=== PATIENT | male | born 1995 | race Hispanic/Latino ===

== ENCOUNTER → 2020-07-19 | Outpatient (REF) | payer OTHER ==
[2020-07-19 10:03] LABS: SEMEN APPEARANCE OPAQUE (OPAQUE); SEMEN VISCOSITY LIQUID (LIQUID); SEMEN VOLUME 3.5 ml (2.0-5.0); SPERM CONCENTRATION 87.2 M/ml (>=15.0); WBC CONCENTRATION <=1 M/ml (<=1 M/ml)
== END ==
LOC: M LAB REF 10:00
PROVIDERS: ATTEND Physician Assistant
DX: N46.9 Male infertility, unspecified (principal)

== ENCOUNTER 2020-12-15 21:01 | Emergency (ER) | payer OTHER ==
[~2020-12-15] VITALS: Ht 172.7 cm; Wt 100.0 kg
[2020-12-15] MEDS ORDERED: OXYC1TAB23 PO (21:10)
[2020-12-15] MEDS ORDERED: TUMS500C PO (21:11)
== END 2020-12-15 23:14 | disposition left against medical advice (07) ==
LOC: M ED 21:02
DX: Z53.21 Procedure and treatment not carried out due to patient leaving prior to being seen by health care provider (principal)

== ENCOUNTER 2022-09-17 16:42 | Emergency (ER) | payer OTHER ==
[~2022-09-17] VITALS: Ht 172.7 cm; Wt 102.5 kg
[~2022-09-17 16:42] MED LIST: OXYC1TAB23 PO; TUMS500C PO
[2022-09-17 16:53] VITALS: TEMP 98.1
[2022-09-17] MEDS ORDERED: KETOROLAC 30 MG/ML 1ML VIAL IV ONE (17:05)
[2022-09-17] MEDS ORDERED: NS 1,000 ML IV SCH (17:40)
[2022-09-17] MEDS ORDERED: propofoL 200 MG/20 ML VIAL IV.PROC PRN (17:40)
[2022-09-17] MEDS ORDERED: KETAMINE HCL 200MG/20ML VIAL IV ONE (17:40)
[2022-09-17] MEDS ORDERED: PERC5TAB12 PO (18:33)
[2022-09-17] MEDS ORDERED: PERCOCET 5MG/325MG TAB PO ONE (18:35)
[2022-09-17] MEDS ORDERED: OXYCODONE/APAP 5MG/325MG(HOME DOSE PACK) PO ONE (19:25)
[2022-09-17 19:32] VITALS: BP 129/74; O2SAT 98
== END 2022-09-17 19:30 | disposition home or self-care (01) ==
LOC: M ED 16:42
DX: S43.004A Unspecified dislocation of right shoulder joint, initial encounter (principal); S42.251A Displaced fracture of greater tuberosity of right humerus, initial encounter for closed fracture; V00.138A Other skateboard accident, initial encounter; Y92.410 Unspecified street and highway as the place of occurrence of the external cause
CPT/HCPCS: 72125; 73030; 73080; 93041; 94760; 96361; 96374; 99156; 99285; J1885

== ENCOUNTER 2023-02-14 09:55 | Day surgery (SDC) | payer OTHER ==
[~2023-02-14] VITALS: Ht 172.7 cm; Wt 107.0 kg
[~2023-02-14 09:55] MED LIST changes: +LIDOCAINE 2% 100MG/5ML SDV (FOR ANES.) As Ordered ONE; +MIDAZOLAM INJ 2MG/2ML VIAL As Ordered ONE; +OMEG100011 PO; +ONDANSETRON 4MG 2ML VIAL As Ordered ONE; +PERC5TAB12 PO; +ROCURONIUM BROMIDE 50MG/5ML VIAL As Ordered ONE; +SUGAMMADEX SODIUM 500 MG/5 ML VIAL (BRIDION) As Ordered ONE; +THERTAB52 PO; +VITA100093 PO; +fentaNYL 100 MCG/2 ML INJECTION As Ordered ONE; +propofoL 200 MG/20 ML VIAL As Ordered ONE
[2023-02-14] MEDS ORDERED: EPINEPHrine INJ 1 MG/ML 1ML AMP As Ordered ONE (10:10)
[2023-02-14] MEDS ORDERED: LR 1,000 ML IV SCH (11:00)
[2023-02-14] MEDS ORDERED: TRANEXAMIC ACID INJection 1,000 MG in NS 100 ML IV ONE (11:05)
[2023-02-14] MEDS ORDERED: ceFAZolin SOD 2 GM in IV 1 EA IV ONE (11:05)
[2023-02-14] MEDS ORDERED: EPINEPHrine INJ 1 MG/ML 1ML AMP PN ONE (12:40)
[2023-02-14] MEDS ORDERED: dexAMETHasone 10MG/1ML VIAL PRES.FREE PN ONE (12:40)
[2023-02-14] MEDS ORDERED: ROPIvacaine 0.5% 30ML VIAL PN ONE (12:40)
[2023-02-14] MEDS ORDERED: LIDOCAINE 1% SDV 5ML VIAL PN ONE (12:40)
[2023-02-14] MEDS: fentaNYL 100 MCG/2 ML INJECTION IV PRN ×2 (12:59→13:04)
[2023-02-14] MEDS: MIDAZOLAM INJ 2MG/2ML VIAL IV PRN ×2 (12:59→13:04)
[2023-02-14] MEDS ORDERED: HYDROmorphone HCL 2MG/ML 1ML VIAL As Ordered ONE ×2 (13:30→15:43)
[2023-02-14] MEDS ORDERED: LABETALOL 100MG/20ML VIAL As Ordered ONE (13:39)
[2023-02-14] MEDS ORDERED: ACETAMINOPHEN 1000MG 100ML IV BAG As Ordered ONE (13:49)
[2023-02-14] MEDS ORDERED: TRANEXAMIC ACID 100 MG/ML 10ML VIAL As Ordered ONE (13:53)
[2023-02-14] MEDS ORDERED: METOPROLOL 5 MG/5 ML VIAL As Ordered ONE (16:01)
[2023-02-14] MEDS ORDERED: ROCURONIUM BROMIDE 50MG/5ML VIAL As Ordered ONE (16:47)
[2023-02-14] MEDS ORDERED: ceFAZolin 2 GM/D5W 50 ML IV BAG As Ordered ONE (17:23)
[2023-02-14] MEDS ORDERED: oxyCODONE 5MG TAB PO PRN (18:35)
[2023-02-14] MEDS ORDERED: MORPHINE 2 MG/ML 1ML VIAL IV PRN (18:35)
[2023-02-14] MEDS ORDERED: fentaNYL 100 MCG/2 ML INJECTION IV PRN (18:35)
[2023-02-14] MEDS ORDERED: ONDANSETRON 4MG 2ML VIAL IV PRN (18:35)
[2023-02-14 20:00] VITALS: BP 126/72; TEMP 98.1; O2SAT 100
== END 2023-02-14 20:20 | disposition home or self-care (01) ==
LOC: M SDC 09:55
PROVIDERS: ATTEND Orthopaedic Surgery
DX: S42.251A Displaced fracture of greater tuberosity of right humerus, initial encounter for closed fracture (principal); S43.431A Superior glenoid labrum lesion of right shoulder, initial encounter; M75.41 Impingement syndrome of right shoulder; M94.211 Chondromalacia, right shoulder; X58.XXXA Exposure to other specified factors, initial encounter; Y93.51 Activity, roller skating (inline) and skateboarding; Y92.9 Unspecified place or not applicable
CPT/HCPCS: 23107; 23412; 29807; 73200; 76000; C1713; C9290; J0131; J0171; J0665; J0690; J1100; J1170; J1920; J2250; J2405; J2795; J3010

== ENCOUNTER → 2023-04-09 | Outpatient (REF) | payer OTHER ==
[~2023-04-09] MED LIST changes: -LIDOCAINE 2% 100MG/5ML SDV (FOR ANES.) As Ordered ONE; -MIDAZOLAM INJ 2MG/2ML VIAL As Ordered ONE; -ONDANSETRON 4MG 2ML VIAL As Ordered ONE; -ROCURONIUM BROMIDE 50MG/5ML VIAL As Ordered ONE; -SUGAMMADEX SODIUM 500 MG/5 ML VIAL (BRIDION) As Ordered ONE; -fentaNYL 100 MCG/2 ML INJECTION As Ordered ONE; -propofoL 200 MG/20 ML VIAL As Ordered ONE
[2023-04-09 10:07] LABS: SEMEN APPEARANCE OPAQUE (OPAQUE); SEMEN VISCOSITY LIQUID (LIQUID); SEMEN VOLUME 1.8 ml (2.0-5.0); SPERM CONCENTRATION 53.2 M/ml (>=15.0); WBC CONCENTRATION <=1 M/ml (<=1 M/ml)
== END ==
LOC: M LAB REF 09:17
DX: Z31.41 Encounter for fertility testing (principal)